=== PATIENT | female | born 1985 | race Hispanic/Latino ===

== ENCOUNTER 2024-07-02 10:19 | Observation (INO) | payer BC, OTHER ==
[2024-07-02] MEDS ORDERED: Lorazepam 2 MG/ML VIAL ONE ×2 (10:52→14:22)
[2024-07-02 11:54] LABS: Bilirubin Negative (Negative); Blood, Urine Negative (Negative); CAUTI Indications for Culture Pelvic or flank pain; Clarity Clear (Clear); Glucose, Urine (Dipstick) Normal (Negative); Ketone, Urine Negative (Negative); Leukocyte Negative Leu/uL (Negative); Nitrite Negative (Negative); Protein, Urine (Dipstick) Negative (Neg-Trace); RBC/HPF 0-3 HPF (0-3); Specific Gravity, Urine 1.003 (1.002-1.036); Urobilinogen Normal mg/dL (Less than 2); WBC/HPF 0-3 HPF (0-3)
[2024-07-02 11:55] LABS: Bacteria/HPF 1+ HPF (None Seen)
[2024-07-02 11:56] LABS: Urine Culture Reflex No No
[2024-07-02 11:58] LABS: Amphetamine Not Detected (NotDetected); Barbiturates Screen Not Detected (NotDetected); Benzodiazepine Screen Not Detected (NotDetected); Cocaine Metabolite Screen Not Detected (NotDetected); Methadone Not Detected (NotDetected); Methamphetamine Not Detected (NotDetected); Opiate Screen Not Detected (NotDetected); Oxycodone Screen Not Detected (NotDetected); Phencyclidine (PCP) Not Detected (NotDetected); THC/Cannabinoid Screen Not Detected (NotDetected); Tricyclic Screen Not Detected (NotDetected)
[2024-07-02 12:52] LABS: #Basophils 0.05 10x3/uL (0.0-0.2); %Basophils 0.4 % (0.0-1.0); %Eosinophils 1.5 % (0.0-10.0); %Lymphocytes 21.4 % (21.0-51.0); %Monocytes 5.5 % (0.0-10.0); %Neutrophils 70.9 % (42.0-75.0); Hematocrit 37.1 % (36.0-47.0); Hemoglobin 12.6 g/dL (12.0-16.0); Mean Corpuscular Volume 85.5 fL (78.0-98.0); Platelet Count 318 10x3/uL (130-400); RBC Distribution Width 13.2 % (11.5-14.5); Red Blood Cell (RBC) Count 4.34 mill/uL (4.20-5.40)
[2024-07-02 13:13] LABS: Troponin I Less than 0.010 ng/mL (< 0.028)
[2024-07-02 13:23] LABS: ALT (SGPT) 18 U/L (8-55); AST (SGOT) 16 U/L (5-34); Acetaminophen Less than 10 mcg/mL (Less than 10); Albumin 3.5 g/dL (3.5-5.0); Alcohol Less than 10.0 mg/dL (Less than 10); Alkaline Phosphatase 63 U/L (40-110); Anion Gap 12 mmol/L (10-20); BUN (Urea Nitrogen) 9 mg/dL (7.0-18.7); Bilirubin, Total 0.4 mg/dL (0.2-1.2); Calc. Creatinine Clearance 0 mL/min (70-130); Calcium 8.6 mg/dL (7.8-10.44); Carbon Dioxide 21 mmol/L (22-29); Chloride 110 mmol/L (98-107); Estimated GFR 111; Glucose 80 mg/dL (70-105); Protein, Total 6.5 g/dL (6.0-8.3); Salicylate Less than 8.0 mg/dL (Less than 8.0); Sodium 139 mmol/L (136-145)
[2024-07-02] MEDS ORDERED: Senokot S 8.6-50 MG TAB PO PRN (15:42)
[2024-07-02] MEDS ORDERED: hydrALAZINE 20 MG/ML VIAL SLOW IVP PRN (15:46)
[2024-07-02 17:19] VITALS: BMI 38.2
[2024-07-02] MEDS: Acetaminophen 325 MG TAB PO PRN (17:20)
[2024-07-02] MEDS: Aspirin 81 mg Enteric Coated Tablet PO SCH (17:21)
[2024-07-02 17:58] LABS: Troponin I Less than 0.010 ng/mL (< 0.028)
[2024-07-02] MEDS: Multivit, Therapeutic 1 TAB PO SCH (20:06)
[2024-07-02] MEDS: Folic Acid 1 MG TAB PO SCH (20:06)
[2024-07-02] MEDS: Cyanocobalamin (Vitamin B-12) 1,000 MCG TAB PO SCH (20:06)
[2024-07-03 04:36] LABS: Hemoglobin A1c 5.2 % (4.0-6.0)
[2024-07-03 04:45] LABS: Anion Gap 12 mmol/L (10-20); BUN (Urea Nitrogen) 10 mg/dL (7.0-18.7); Calc. Creatinine Clearance 153 mL/min (70-130); Calcium 8.3 mg/dL (7.8-10.44); Carbon Dioxide 24 mmol/L (22-29); Cardiac Risk 4.5 (Less than 4.5); Chloride 109 mmol/L (98-107); Cholesterol 144 mg/dl (< 200 Desired); Estimated GFR 103; Glucose 128 mg/dL (70-105); HDL Cholesterol 32 mg/dL (>60 Neg Risk); LDL Cholesterol, Calculated 80 mg/dL; Potassium 3.5 mmol/L (3.5-5.1); Sodium 141 mmol/L (136-145); Triglycerides 158 mg/dL (Less than 150)
[2024-07-03] MEDS: Enoxaparin 40 MG (0.4 mL) SYRINGE SC SCH (07:56)
[2024-07-03] MEDS: Aspirin 81 mg Enteric Coated Tablet PO SCH (07:56)
[2024-07-03 08:59] LABS: PTT 30.5 sec (22.9-36.1); Prothrombin Time 13.3 sec (12.0-14.7)
[2024-07-03 09:00] LABS: D-Dimer Test 0.28 mcg/mL (0.27-0.43)
[2024-07-03 12:21] LABS: Cardiolipin IgA Ab 2.4 APL-U/mL (<14 Negative); Cardiolipin IgG Ab 0.7 GPL-U/mL (<10 Negative); Cardiolipin IgM Ab 1.5 MPL-U/mL (<10 Negative); EliA APS New Method **** NEW METHOD ****
[2024-07-03] MEDS: Fioricet 325/50/40 mg Tablet PO SCH (14:58)
[2024-07-03 16:54] VITALS: BP 143/83; TEMP 98.2
[2024-07-03] MEDS: FLU (Fluarix Triv) TS24-25(6MOS UP)/PF 45 MCG/0.5 ML Syringe IM ONE (17:14)
== END 2024-07-03 17:45 | disposition home or self-care (01) ==
LOC: ERS 10:19 → 2SE 16:01
PROVIDERS: ADMIT Internal Medicine; ATTEND Internal Medicine
DX: R29.818 Other symptoms and signs involving the nervous system (principal); R42 Dizziness and giddiness; R56.9 Unspecified convulsions; R11.2 Nausea with vomiting, unspecified; Z88.8 Allergy status to other drugs, medicaments and biological substances; Z79.82 Long term (current) use of aspirin; Z79.899 Other long term (current) drug therapy
CPT/HCPCS: 36415; 70450; 70551; 71045; 80048; 80053; 80061; 80306; 80307; 81001; 83036; 83090; 84484; 85025; 85300; 85303; 85306; 85307; 85598; 85610; 85730; 86147; 93005; 93880; 96372; 96374; 96376; G0378; J1650; J2060